=== PATIENT | male | born 1990 | race Two or more races ===

== ENCOUNTER 2020-01-06 07:26 | Outpatient (CLI) | payer OTHER | END 2020-01-06 23:59 | disposition home or self-care (01) | DX: Z01.812 Encounter for preprocedural laboratory examination (principal); Z20.828 Contact with and (suspected) exposure to other viral communicable diseases | CPT/HCPCS: 87426; C9803 ==

== ENCOUNTER 2020-01-11 05:07 | Day surgery (SDC) | payer OTHER ==
[~2020-01-11] VITALS: Ht 165.1 cm; Wt 69.9 kg
--- NOTE | 2020-01-11 05:30 | NUR ---
rn ms notes received patient scheduled for surgery to right shoulder consents signed, md orders place and carried out,left ac #20 g intact and patent, belongings list done, alert and oriented x4 respirations even and unlabored with equal rise and fall of chest, oriented to staff and call light and kept within reach, safety precautions rendered, pt voided, call light kept within reach, all needs attended remains comfortable, at this time denies pain states at times pain is positional at this time, remains comfortable.
[2020-01-11 06:02] VITALS: BP 125/67
[2020-01-11 06:04] LABS: BASOPHILS % (AUTO) 0.4 % (0.0-2.0); EOSINOPHILS % (AUTO) 3.4 % (0.0-6.0); HEMATOCRIT 42 % (39-51); HEMOGLOBIN 14.2 g/dL (13.5-17.5); LYMPHOCYTES # (AUTO) 2.2 /CMM (0.8-4.8); LYMPHOCYTES % (AUTO) 40.2 % (20.0-44.0); MEAN CORPUSCULAR HGB CONC 34 g/dl (31.0-36.0); MEAN CORPUSCULAR VOLUME 86 fL (80-96); MONOCYTES # (AUTO) 0.3 /CMM (0.1-1.30); NEUTROPHILS # (AUTO) 2.7 /CMM (1.8-8.9); PLATELET COUNT (AUTO) 181 /CMM (150-450); RED BLOOD CELL COUNT(AUTO) 4.89 MIL/uL (4.5-6.0); WHITE BLOOD COUNT (AUTO) 5.4 K/uL (4.3-11.0)
[2020-01-11 06:42] LABS: CALCIUM, SERUM 8.9 mg/dL (8.5-10.1); CREATININE 0.9 mg/dL (0.6-1.3); POTASSIUM 3.8 mmol/L (3.5-5.1)
--- NOTE | 2020-01-11 06:57 | NUR ---
NASIR ANDERS NOTES PATIENT IN BED AWAKE ALERT AND ORIENTED AWAITING SCHEDULED PROCEDURE, REMAINS COMFORTABLE CALL LIGHT KEPT WITHIN REACH. Addendum: 01/11/20 at 0659 by RODRIGO CRESPO RN WILL ENDORSE TO NEXT SHIFT.
--- NOTE | 2020-01-11 07:15 | NUR ---
PT LYING IN BED WTH HOB ELEVATED. RESPIRATIONS EVEN AND UNLABORED. VS WNL. A/OX4. SKIN WARM AND FLUSHED. NO CONCERN DENIES ANY SOB OR PAIN. PT AWAITING SURGERY. IV PATENT AND DRESSING. RAILS UP X2, BED LOCKED, LOW, CALL LIGHT IN REACH. ALL HOSPITAL POLICY SAFETY PRECAUTIONS IMPLEMENTED.
[2020-01-11] MEDS ORDERED: LIDOCAINE 1% INJ 50 ML MDV IJ ONE (07:16)
[2020-01-11] MEDS ORDERED: EPINEPHRINE (1:1000) 1 MG/ML AMPUL ONE (07:17)
[2020-01-11 08:00] VITALS: BP 107/50
--- NOTE | 2020-01-11 08:05 | NUR ---
PT TAKEN TO OR VIA BED. ASSISTED WITH OR NURSE AND TECH.
[2020-01-11] MEDS ORDERED: MIDAZOLAM HCL 2 MG/2ML VIAL ONE (09:23)
[2020-01-11] MEDS ORDERED: ROCURONIUM BROMIDE 50 MG/5 ML ONE (09:24)
[2020-01-11] MEDS ORDERED: FENTANYL PF 250MCG/5ML AMPUL ONE (09:24)
[2020-01-11] MEDS ORDERED: methylPREDNISolone ACETATE 80 MG/ML VIAL ONE (10:02)
--- NOTE | 2020-01-11 11:30 | NUR ---
RN NOTE: Patient was taken back to room 111-1 after surgery. S/P Right Shoulder Arthoscopy, Major Debreidement, Acromioplasty. Patient Alert, awake, oriented x4. On room air @ 96% tolerating well, NO SOB and not in respiratory distress. Right arm sling on at all times. No pain reported at the moment. V/S stable. For Discharge when stable/comfortable. Will continue to monitor.
[2020-01-11] MEDS ORDERED: HYDROCODONE/APAP 5/325MG TABLET PO PRN (12:00)
--- NOTE | 2020-01-11 15:15 | NUR ---
HOTEL OPERATION MANAGER NOTE: Patient was picked up by Mother and Father. Discharge forms and Belongings form signed and given. Discharge packet signed. Patient verbalized understanding regarding discharge instruction and will follow up with Provider. PAtient left facility in stable condition.
== END 2020-01-11 18:00 | disposition home or self-care (01) ==
LOC: DS 05:07 → MED 05:08 → UNDOADMIN 05:08 → MED 05:20 → MEDSG1 05:20 → UNDODISIN 14:00 → DS 18:00
PROVIDERS: ATTEND Specialist
DX: M75.41 Impingement syndrome of right shoulder (principal); M65.811 Other synovitis and tenosynovitis, right shoulder
CPT/HCPCS: 29822; 36415; 71045; 80048; 85025; 85730; 86850; 87081; 88304; 88311; 93005; A4217; J0171; J0690; J1040; J1885; J2250; J2405; J2704; J2765; J3010; J3490; G0378